=== PATIENT | male | born 1980 | race Caucasian/White ===

== ENCOUNTER 2017-07-28 20:46 | Inpatient (IN) | payer OTHER ==
[~2017-07-28] VITALS: Ht 170.2 cm; Wt 58.0 kg
[~2017-07-28 20:46] MED LIST: CEPH250C
[2017-07-28 20:58] VITALS: BP 136/95; PULSE 55; RESP 18; O2SAT 100
[2017-07-28] MEDS ORDERED: MORPHINE SULFATE 4 MG/ML INJ IV PUSH ONE (21:00)
[2017-07-28] MEDS ORDERED: SODIUM CHLORIDE 0.9% FLUSH 10 ML FLUSH IV FLUSH PRN (21:00)
--- NOTE | 2017-07-28 21:05 | PD ---
HPI Chief Complaint: Dog bite Time Seen by Provider: 20:59 Travel History International Travel<30 days: No Contact w/Intl Traveler<30days: No History of Present Illness HPI Patient comes emergency department after being evaluated for [facility] as a trauma transfer. 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 Patient reportedly had warrants out for his arrest took off running and the canine dog was released causing traumatic dog bite to the left calf. Describes pain as a burning pressure-like in nature is worse to any palpation of his distal left lower extremity. Patient reports he is unable to move his extremity distally secondary to the pain. Patient was given IV morphine, IV Zofran, 3 g of Unasyn, IV Dilaudid, Toradol, and his tetanus shot was updated prior to coming to the emergency department. Denies any radiation of the pain. Severity moderate. PFSH Past Medical History Depression: Yes Social History Alcohol Use: No Tobacco Use: Yes (<ONE PK PER DAY) Allergies-Medications (Allergen,Severity, Reaction): Coded Allergies: No Known Allergies (Verified Allergy, Mild, 07/28/17) Reported Meds & Prescriptions Reported Meds & Active Scripts Active Reported Keflex (Cephalexin Monohydrate) 250 Mg Cap Review of Systems Except as stated in HPI: all other systems reviewed are Neg Physical Exam Narrative GENERAL: Well-developed, well nourished, in no acute distress, and non-ill appearing. SKIN: Large soft tissue injury noted to left calf and her dog bite. Wound goes all the way down to the fascia. No obvious bony involvement is noted. Neurovascularly intact distally. HEAD: Atraumatic. Normocephalic. EYES: Pupils equal and round. EOMI. No scleral icterus. No injection or drainage. ENT: No nasal bleeding or discharge. Mucous membranes pink and moist. NECK: Trachea midline. Supple. No nuclear rigidity. CARDIOVASCULAR: Dorsal pulses 2+, intact, and equal bilaterally. RESPIRATORY: No accessory muscle use. No respiratory distress. MUSCULOSKELETAL: No obvious deformities. No clubbing. No cyanosis. No edema. Full range of motion. NEUROLOGICAL: Awake and alert. No obvious cranial nerve deficits. Motor grossly within normal limits. Normal speech. PSYCHIATRIC: Appropriate mood and affect; insight and judgment normal. Data Data Last Documented VS Vital Signs Date Time Temp Pulse Resp B/P (MAP) Pulse Ox O2 Delivery O2 Flow Rate FiO2 07/28/17 20:58 55 18 136/95 (109) 100 Orders Orders Tibia/Fibula (Ap/Lat) (07/28/17 ) Iv Access Insert/Monitor (07/28/17 20:57) Ecg Monitoring (07/28/17 20:57) Oximetry (07/28/17 20:57) Morphine Inj (Morphine Inj) (07/28/17 21:00) Sodium Chloride 0.9% Flush (Ns Flush) (07/28/17 21:00) Admit To Inpatient (07/28/17 ) Vital Signs (Adult) SCARLETT.QSHIFT (07/28/17 21:11) Intake + Output SCARLETT.Q8H (07/28/17 21:11) Activity Bed Rest (07/28/17 21:11) Diet Npo (07/29/17 Breakfast) Scd / Grady / Foot Pump SCARLETT.QSHIFT (07/28/17 21:11) Resp Incentive Spirometry (07/28/17 ) Lactated Ringer's 1000 Ml Inj (Lr 1000 M (07/28/17 21:11) Morphine Inj (Morphine Inj) (07/28/17 21:15) Ondansetron Inj (Zofran Inj) (07/28/17 21:15) Enoxaparin Inj (Lovenox Inj) (07/28/17 23:00) Consult Pt Eval & Treat (07/28/17 21:11) Docusate Sodium (Colace) (07/29/17 09:00) Magnesium Hydroxide Liq (Milk Of Magnesi (07/28/17 21:15) Consult Orthopedic (07/28/17 ) ^ Initiate Protocol (07/28/17 21:11) Instruction (07/28/17 21:11) Misc Nursing Information (07/28/17 21:15) Chlorhexidine 2% Cloth (Chlorhexidine 2% (07/29/17 04:00) Chlorhexidine 2% Cloth (Chlorhexidine 2% (07/28/17 21:15) Mrsa Pcr Surveillance (07/28/17 21:11) Inpatient Certification (07/28/17 ) Levothyroxine (Synthroid) (07/29/17 06:00) Vancomycin Inj (Vancomycin Inj) (07/28/17 22:00) Piperacil-Tazo 3.375 Gm Premix (Zosyn 3. (07/29/17 00:00) Admit Order (Ed Use Only) (07/28/17 21:43) MDM Medical Decision Making Medical Screen Exam Complete: Yes Emergency Medical Condition: Yes Interpretation(s) Last Impressions Tibia/Fibula X-Ray 07/28/17 0000 Signed Impressions: Service Date/Time: Friday, July 28, 2017 21:13 - CONCLUSION: 1. Numerous lacerations around the proximal leg with avulsion fracture at the proximal fibula. John Paul MD Differential Diagnosis Dog bite, open fracture, traumatic wound Narrative Course Patient was seen and examined. Patient was given an additional dose of IV morphine, patient was placed on court monitor, x-ray of the tib-fib was ordered. Discussed patient with trauma surgeon who agrees to admit the patient requesting orthopedic consult. Discussed patient with orthopedic is agreeable to consult the patient. Discussed all findings and plan of care patient is agreeable for admission. All questions were answered. Discussed patient with Dr. Aaron, who is in agreement with plan of care and disposition. Patient remained stable throughout ED course. Physician Communication Physician Communication [address] Squires at bedside and evaluated the patient recommends giving additional 4 mg of morphine, repeating tib-fib x-ray, and consulting orthopedic for surgical intervention. He will admit the patient. [address] Chuck Alvarez, who is uncertain if they will be able to consult on the patient but is wanting to wait x-rays. 2139 discussed patient with Antonio DE SANTIAGO does not appear to be any bony involvement. Antonio is agreeable to accept consult at this time. [address] Chuck DE SANTIAGO regarding the renal cervical region on the avulsion fracture of the proximal fibula. States no change in plan of care at this time. Diagnosis Primary Impression: Dog bite of calf Qualified Codes: S81.852A - Open bite, left lower leg, initial encounter; W54.0XXA - Bitten by dog, initial encounter Additional Impression: Open fracture of fibula alone Admitting Information Admitting Physician Requests: Admit Condition: Stable Misha Zhang Jul 28, 2017 21:05
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
[2017-07-28] MEDS ORDERED: CHLORHEXIDINE GLUCONATE 2 % 1 PACK (2 CLOTHS) TOP PRN (21:15)
[2017-07-28] MEDS ORDERED: MAGNESIUM HYDROXIDE SUSP 30 ML CUP PO PRN (21:15)
[2017-07-28] MEDS ORDERED: MORPHINE SULFATE 4 MG/ML INJ IV PUSH PRN (21:15)
[2017-07-28] MEDS ORDERED: MISCELLANEOUS NURSING INFORMATION XX SCH (21:15)
[2017-07-28] MEDS ORDERED: ONDANSETRON HCL 4 MG/2 ML VIAL IV PUSH PRN (21:15)
--- NOTE | 2017-07-28 21:59 | RADRPT ---
EXAM DATE/TIME: 07/28/2017 21:13 [facility] COMPARISON: No previous studies available for comparison. INDICATIONS : Evaluate left tibia for trauma, dog bite MEDICAL HISTORY : None. SURGICAL HISTORY : None. ENCOUNTER: Initial ACUITY: 1 day PAIN SCORE: 9/10 LOCATION: Left Tibia FINDINGS: Two view examination of the left tibia demonstrates numerous lacerations around the left knee and upp er left leg with small avulsion fracture of the proximal fibula. No radiopaque foreign body. CONCLUSION: 1. Numerous lacerations around the proximal leg with avulsion fracture at the proximal fibula. John Paul MD on July 28, 2017 at 21:56 Board Certified Radiologist. This report was verified electronically.
[2017-07-28] MEDS: LACTATED RINGER'S 1000 ML INJ 1,000 ML IV SCH (22:47)
[2017-07-28] MEDS: ENOXAPARIN SODIUM 30 MG/0.3 ML SYRINGE SQ SCH (22:48)
[2017-07-28] MEDS: VANCOMYCIN INJ 1,000 MG in SODIUM CHLOR 0.9% 250 ML INJ 250 ML IV SCH (22:48)
[2017-07-29] MEDS: PIPERACIL-TAZO 3.375 GM PREMIX 50 ML IV SCH ×5 (00:59→23:07)
[2017-07-29 03:00] VITALS: BP 118/64; PULSE 84; RESP 16; O2SAT 87
[2017-07-29] MEDS: CHLORHEXIDINE GLUCONATE 2 % 1 PACK (2 CLOTHS) TOP SCH (04:00)
[2017-07-29] MEDS: LEVOTHYROXINE SODIUM 200 MCG TAB PO SCH (06:00)
[2017-07-29 07:01] LABS: AUTOMATED NEUTROPHIL # 6.6 TH/MM3 (1.8-7.7); BASOPHIL # 0.1 TH/MM3 (0-0.2); BASOPHIL % 1.2 % (0.0-2.0); EOSINOPHIL # 0.2 TH/MM3 (0-0.4); EOSINOPHIL % 1.5 % (0.0-4.0); HEMATOCRIT 35.3 % (39.0-51.0); HEMOGLOBIN 12.1 GM/DL (13.0-17.0); LYMPH % 22.3 % (9.0-44.0); LYMPHOCYTE # 2.3 TH/MM3 (1.0-4.8); MEAN CELL VOLUME 93.4 FL (80.0-100.0); MEAN CORPUSCULAR HEMOGLOBIN 32.1 PG (27.0-34.0); MEAN CORPUSCULAR HGB CONC 34.4 % (32.0-36.0); MEAN PLATELET VOLUME 7.5 FL (7.0-11.0); MONO % 9.4 % (0.0-8.0); MONOCYTE # 0.9 TH/MM3 (0-0.9); NEUT % 65.6 % (16.0-70.0); PLATELET COUNT 252 TH/MM3 (150-450); RED BLOOD COUNT 3.77 MIL/MM3 (4.50-5.90); RED CELL DISTRIBUTION WIDTH 13.5 % (11.6-17.2); WHITE BLOOD COUNT 10.1 TH/MM3 (4.0-11.0)
[2017-07-29 07:21] LABS: BICARBONATE 20.8 MEQ/L (21.0-32.0); CALCIUM 8.3 MG/DL (8.5-10.1); CREATININE 1.38 MG/DL (0.60-1.30)
[2017-07-29 07:31] VITALS: BP 107/62; PULSE 45; RESP 16; TEMP 97.6; O2SAT 100
[2017-07-29] MEDS: VANCOMYCIN INJ 1,000 MG in SODIUM CHLOR 0.9% 250 ML INJ 250 ML IV SCH ×3 (07:45→22:01)
[2017-07-29] MEDS ORDERED: GENTAMICIN SULFATE 80 MG/2 ML VIAL ONE (08:35)
[2017-07-29] MEDS ORDERED: ceFAZolin INJ 1,000 MG VIAL ONE (08:35)
[2017-07-29] MEDS: DOCUSATE SODIUM 100 MG CAP PO SCH ×2 (09:00→22:01)
[2017-07-29] MEDS ORDERED: CHLORHEXIDINE GLUCONATE 2 % 1 PACK (2 CLOTHS) TOPICAL PRN (09:15)
[2017-07-29] MEDS ORDERED: POVIDONE IODINE 5% (ANTISEPSIS KIT) 4 APPLICATIONS EACH NARE PRN (09:15)
[2017-07-29] MEDS ORDERED: LACTATED RINGER'S 1000 ML IV PRN (09:15)
[2017-07-29] MEDS ORDERED: SODIUM CHLORID 0.9% 500 ML IV PRN (09:15)
[2017-07-29] MEDS ORDERED: METOPROLOL TARTRATE 25 MG TAB PO PRN (09:15)
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
[2017-07-29] MEDS: LACTATED RINGER'S 1000 ML INJ 1,000 ML IV SCH ×5 (10:17→22:02)
[2017-07-29] MEDS ORDERED: BACITRACIN TOP OINT 15 GM TUBE ONE (10:22)
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
[2017-07-29] MEDS: ENOXAPARIN SODIUM 30 MG/0.3 ML SYRINGE SQ SCH ×2 (11:00→22:02)
[2017-07-29] MEDS ORDERED: DO NOT ADM ANY ANTICOAGULANT DRUGS PRN (11:04)
[2017-07-29] MEDS ORDERED: *morphine SULFATE 4 MG/ML PERIprocedure ONLY ONE (11:43)
[2017-07-29] MEDS ORDERED: ONDANSETRON HCL 4 MG/2 ML VIAL IV ONE (12:00)
[2017-07-29] MEDS ORDERED: DEXAMETHASONE SOD PHOS 4 MG/ML VIAL IV ONE (12:00)
[2017-07-29] MEDS ORDERED: LIDOCAINE HCL 1% PF 5 ML SYRINGE OTHER ONE (12:00)
[2017-07-29] MEDS ORDERED: GLYCOPYRROLATE 1 MG/5 ML SYRINGE IV PUSH ONE (12:00)
[2017-07-29] MEDS ORDERED: LACTATED RINGER'S 1000 ML INJ 1,000 ML IV ONE (12:00)
[2017-07-29] MEDS ORDERED: PROPOFOL 200 MG/20 ML AMP IV ONE (12:00)
[2017-07-29] MEDS ORDERED: ePHEDrine/NS 25 MG/5 ML SYRINGE IV ONE (12:00)
[2017-07-29] MEDS ORDERED: PHENYLEPH/NS 1000 MCG/10 ML SYR IV ONE (12:00)
--- NOTE | 2017-07-29 12:10 | RADRPT ---
EXAM DATE/TIME: 07/29/2017 11:39 [facility] COMPARISON: No previous studies available for comparison. INDICATIONS : Post central line placement MEDICAL HISTORY : None. SURGICAL HISTORY : None. ENCOUNTER: Initial ACUITY: 1 day PAIN SCORE: Non-responsive. LOCATION: Bilateral chest FINDINGS: A single view of the chest demonstrates the lungs to be symmetrically aerated without evidence of mas s, infiltrate or effusion. No evidence of pneumothorax. The cardiomediastinal contours are unremarka ble. Osseous structures are intact. Left subclavian catheter tip projects over the origin of the sup erior vena cava. CONCLUSION: 1. Central line at the origin of the superior vena cava. 2. No evidence of pneumothorax. Juan J Rose MD on July 29, 2017 at 12:08 Board Certified Radiologist. This report was verified electronically.
[2017-07-29 13:34] VITALS: BP 118/77; PULSE 49; RESP 19; TEMP 97.4; O2SAT 98
[2017-07-29 15:47] VITALS: BP 115/72; PULSE 50; RESP 19; TEMP 97.2; O2SAT 100
[2017-07-29] MEDS: ACETAMINOPHEN/HYDROcodone 325 MG/7.5 MG TAB PO PRN (17:09)
--- NOTE | 2017-07-29 17:40 | HHI.PR ---
Subjective Subjective Notes PTD: 1 Patient lying in bed. No distress noted. [place] at bedside. Remains groggy post OR. Patient complains of pain to left lower extremity. Objective Vitals/I&O Vital Signs Date Time Temp Pulse Resp B/P (MAP) Pulse Ox O2 Delivery O2 Flow Rate FiO2 07/29/17 15:47 97.2 50 19 115/72 (86) 100 07/29/17 12:30 Nasal Cannula 2 Labs Laboratory Tests Test 07/29/17 05:55 White Blood Count 10.1 Red Blood Count 3.77 Hemoglobin 12.1 Hematocrit 35.3 Mean Corpuscular Volume 93.4 Mean Corpuscular Hemoglobin 32.1 Mean Corpuscular Hemoglobin Concent 34.4 Red Cell Distribution Width 13.5 Platelet Count 252 Mean Platelet Volume 7.5 Neutrophils (%) (Auto) 65.6 Lymphocytes (%) (Auto) 22.3 Monocytes (%) (Auto) 9.4 Eosinophils (%) (Auto) 1.5 Basophils (%) (Auto) 1.2 Neutrophils # (Auto) 6.6 Lymphocytes # (Auto) 2.3 Monocytes # (Auto) 0.9 Eosinophils # (Auto) 0.2 Basophils # (Auto) 0.1 CBC Comment DIFF FINAL Differential Comment Blood Urea Nitrogen 22 Creatinine 1.38 Random Glucose 78 Calcium Level 8.3 Sodium Level 136 Potassium Level 4.2 Chloride Level 108 Carbon Dioxide Level 20.8 Anion Gap 7 Estimat Glomerular Filtration Rate 58 Radiology Last 72 hours Impressions Chest X-Ray 07/29/17 0000 Signed Impressions: Service Date/Time: Saturday, July 29, 2017 11:39 - CONCLUSION: 1. Central line at the origin of the superior vena cava. 2. No evidence of pneumothorax. Juan J Rose MD Tibia/Fibula X-Ray 07/28/17 0000 Signed Impressions: Service Date/Time: Friday, July 28, 2017 21:13 - CONCLUSION: 1. Numerous lacerations around the proximal leg with avulsion fracture at the proximal fibula. John Paul MD Narrative Exam GENERAL: This is a 36-year-old male who looks much older than his stated age lying in bed. No distress noted. SKIN: Warm and dry. HEAD: Atraumatic. Normocephalic. EYES: PERRLA ENT: No nasal bleeding or discharge. Mucous membranes pink and moist. NECK: Trachea midline. No JVD. CARDIOVASCULAR: Regular rate and rhythm. RESPIRATORY: No accessory muscle use. Lungs are clear to auscultation. Breath sounds equal bilaterally. No distress or dyspnea. GASTROINTESTINAL: BS + x 4 quads. Abdomen soft, non-tender, nondistended. MUSCULOSKELETAL: Extremities without cyanosis, or edema. LEFT lower extremity wrapped in Jesus bandage. + peripheral pulses x 4 extremities. Warm with good capillary refill and sensation. MAEW. NEUROLOGICAL: Awake and alert. Normal speech and pattern. A/P Problem List: (1) Dog bite of calf ICD Codes: S81.859A - Open bite, unspecified lower leg, initial encounter; W54.0XXA - Bitten by dog, initial encounter Status: Acute (2) Open fracture of fibula alone ICD Codes: S82.409B - Unspecified fracture of shaft of unspecified fibula, initial encounter for open fracture type I or II Status: Acute Assessment and Plan [place]: This is a 36-year-old male who sustained a dog bite. He had a warrant out for his arrest and the canines were released. Traumatic dog bite to left calf. INJURIES: LEFT fibula avulsion fx Leg lacerations PMHx: Smoker Procedures: 07/29: I&D LEFT calf. Complex wound closure Consults: Orthopedics. Case management. Diet: Regular diet. Tolerating po diet. Encourage good po intake with each meal. Pulmonary: Encourage good pulmonary toileting. IS at bedside and pt encouraged to use. Rationale for use explained to patient, and verbalized understanding. PAIN Management: [place] 7.5 mg q 3h. Morphine 4 mg q 3h. Activity: OOB. PT ordered. (?WBS?) GI prophylaxis: Not indicated at this time Bowel regimen: Colace and MOM. LBM: 0 DVT prophylaxis: Mechanical VTE with SCDs. Chemical management with Lovenox 30 mg BID SQ. DC Planning: Case management consulted for assistance with final discharge disposition. Patient will be discharged back into police custody. Emotional support provided to patient at bedside and plan of care discussed. Discussed with RN at bedside. Discussed pt condition and plan of care with collaborating trauma surgeon. Patient is hemodynamically stable and being managed on the med/surg floor. The trauma team will round each day, and evaluate plan of care on a daily basis. Attending Statement The exam, history, and the medical decision-making described in the above note were completed with the assistance of the mid-level provider. I reviewed and agree with the findings presented. I attest that I had a [id number] encounter with the patient on the same day, and personally performed and documented my assessment and findings in the medical record. Problem Qualifiers (1) Dog bite of calf: Qualified Codes: S81.852A - Open bite, left lower leg, initial encounter; W54.0XXA - Bitten by dog, initial encounter Janae Sullivan Jul 29, 2017 17:40 Keven Squires MD Jul 30, 2017 02:14
[2017-07-29 20:03] VITALS: O2SAT 99
[2017-07-30] VITALS: BP 148/68; PULSE 62; RESP 16; TEMP 97.3; O2SAT 99
[2017-07-30] MEDS: CHLORHEXIDINE GLUCONATE 2 % 1 PACK (2 CLOTHS) TOP SCH (03:01)
[2017-07-30] MEDS: PIPERACIL-TAZO 3.375 GM PREMIX 50 ML IV SCH ×4 (05:05→18:32)
[2017-07-30] MEDS: LACTATED RINGER'S 1000 ML INJ 1,000 ML IV SCH ×2 (05:05→05:39)
[2017-07-30] MEDS: LEVOTHYROXINE SODIUM 200 MCG TAB PO SCH (05:38)
[2017-07-30] MEDS: VANCOMYCIN INJ 1,000 MG in SODIUM CHLOR 0.9% 250 ML INJ 250 ML IV SCH ×2 (05:39→17:25)
[2017-07-30] MEDS ORDERED: DOCU1CAP39 PO (07:05)
[2017-07-30] MEDS ORDERED: MAGN30S PO (07:05)
--- NOTE | 2017-07-30 07:22 | PD.ORT.PN ---
Subjective Subjective Remarks POD 1 s/p I&D with wound closure left leg doing well. reports pain Objective Vitals Vital Signs Date Time Temp Pulse Resp B/P (MAP) Pulse Ox O2 Delivery O2 Flow Rate FiO2 07/30/17 00:00 97.3 62 16 148/68 (94) 99 07/29/17 20:03 99 21 07/29/17 15:47 97.2 50 19 115/72 (86) 100 07/29/17 13:34 97.4 49 19 118/77 (91) 98 07/29/17 12:30 98.0 07/29/17 12:30 45 14 139/92 (108) 96 Nasal Cannula 2 07/29/17 12:15 43 14 141/94 (110) 96 Nasal Cannula 2 07/29/17 12:00 42 14 140/96 (111) 95 Nasal Cannula 2 07/29/17 11:45 44 14 133/90 (104) 94 Nasal Cannula 2 07/29/17 11:30 44 14 140/97 (111) 95 Nasal Cannula 2 07/29/17 11:15 96.3 07/29/17 11:11 96.3 46 14 133/88 (103) 98 Nasal Cannula 2 07/29/17 07:31 97.6 45 16 107/62 (77) 100 I/O 07/29/17 07/29/17 07/29/17 07/30/17 07/30/17 07/30/17 07:00 15:00 23:00 07:00 15:00 23:00 Intake Total 1000 ml 120 ml 350 ml Output Total 20 ml 800 ml Balance 980 ml -680 ml 350 ml Intake Oral 120 ml IV Total 350 ml Other 1000 ml Output Urine Total 800 ml Estimated Blood Loss 20 ml Result Diagram: 07/29/17 0555 07/29/17 0555 Objective Remarks LLE: dressings clean and dry. intact. NVI Assessment & Plan Assessment and Plan 1) Left Traumatic Bite Injury s/p I&D and wound closure 2) Left Nondisplaced proximal fibula fx -plan for dressing changes with bacitracin/xeroform/4x4/REED on POD -NWB -will require a few days in hospital for IV Abx -f/u with Kyree or PA in 2 weeks Antonio Mar/Multineedle Shirrer PA Jul 30, 2017 07:22
[2017-07-30 07:42] VITALS: BP 118/76; PULSE 48; RESP 18; TEMP 98.2; O2SAT 95
[2017-07-30] MEDS: DOCUSATE SODIUM 100 MG CAP PO SCH ×2 (08:09→22:13)
[2017-07-30] MEDS ORDERED: PNEUMOCOCCAL POLYVALENT INJ 25 MCG/0.5 ML SYR IM ONE (10:00)
[2017-07-30] MEDS ORDERED: INFLUENZA VIRUS VACCINE (QUADRIVALENT) 0.5 ML SYR IM ONE (10:00)
[2017-07-30 11:28] VITALS: BP 118/78; PULSE 47; RESP 18; TEMP 98.1; O2SAT 97
[2017-07-30] MEDS: ENOXAPARIN SODIUM 30 MG/0.3 ML SYRINGE SQ SCH ×2 (11:30→22:13)
[2017-07-30] MEDS ORDERED: Amoxicil-Clavulanate PO (11:34)
[2017-07-30] MEDS ORDERED: HYDR-3580 PO (11:35)
--- NOTE | 2017-07-30 12:59 | HHI.PR ---
Subjective Subjective Notes PTD: 2 Pt lying in bed asleep. Arouses easily. [place] at bedside. Pt c/o pain to his LEFT leg. Objective Vitals/I&O Vital Signs Date Time Temp Pulse Resp B/P (MAP) Pulse Ox O2 Delivery O2 Flow Rate FiO2 07/30/17 11:28 98.1 47 18 118/78 (91) 97 07/29/17 20:03 21 07/29/17 12:30 Nasal Cannula 2 Radiology Chest X-Ray 07/29/17 0000 Signed Impressions: Service Date/Time: Saturday, July 29, 2017 11:39 - CONCLUSION: 1. Central line at the origin of the superior vena cava. 2. No evidence of pneumothorax. Juan J Rose MD Tibia/Fibula X-Ray 07/28/17 0000 Signed Impressions: Service Date/Time: Friday, July 28, 2017 21:13 - CONCLUSION: 1. Numerous lacerations around the proximal leg with avulsion fracture at the proximal fibula. John Paul MD Narrative Exam GENERAL: This is a 36-year-old male who looks much older than his stated age lying in bed asleep - arouses easily. No distress noted. SKIN: Warm and dry. HEAD: Atraumatic. Normocephalic. EYES: PERRLA ENT: No nasal bleeding or discharge. Mucous membranes pink and moist. NECK: Trachea midline. No JVD. CARDIOVASCULAR: Regular rate and rhythm. RESPIRATORY: No accessory muscle use. Lungs are clear to auscultation. Breath sounds equal bilaterally. No distress or dyspnea. GASTROINTESTINAL: BS + x 4 quads. Abdomen soft, non-tender, nondistended. MUSCULOSKELETAL: Extremities without cyanosis, or edema. LEFT lower extremity wrapped in Jesus bandage. + peripheral pulses x 4 extremities. Warm with good capillary refill and sensation. MAEW. NEUROLOGICAL: Asleep - awakens easily. A/P Problem List: (1) Dog bite of calf ICD Codes: S81.859A - Open bite, unspecified lower leg, initial encounter; W54.0XXA - Bitten by dog, initial encounter Status: Acute (2) Open fracture of fibula alone ICD Codes: S82.409B - Unspecified fracture of shaft of unspecified fibula, initial encounter for open fracture type I or II Status: Acute Assessment and Plan [place]: This is a 36-year-old male who sustained a dog bite. He had a warrant out for his arrest and the canines were released. Traumatic dog bite to left calf. INJURIES: LEFT fibula avulsion fx Leg lacerations PMHx: Smoker Procedures: 07/29: I&D LEFT calf. Complex wound closure Consults: Orthopedics. Case management. Diet: Regular diet. Tolerating po diet. Encourage good po intake with each meal. Pulmonary: Encourage good pulmonary toileting. IS at bedside and pt encouraged to use. Rationale for use explained to patient, and verbalized understanding. PAIN Management: [place] 7.5 mg q 3h. Morphine 4 mg q 3h. Activity: OOB. PT ordered. (?WBS?) GI prophylaxis: Not indicated at this time Bowel regimen: Colace and MOM PRN. LBM: 0 DVT prophylaxis: Mechanical VTE with SCDs. Chemical management with Lovenox 30 mg BID SQ. DC Planning: Case management consulted for assistance with final discharge disposition. Patient will be discharged back into police custody. Emotional support provided to patient at bedside and plan of care discussed. Discussed with RN at bedside. Discussed pt condition and plan of care with collaborating trauma surgeon. Patient is hemodynamically stable and being managed on the med/surg floor. The trauma team will round each day, and evaluate plan of care on a daily basis. LEFT fibula avulsion fx Leg lacerations Orthopedics consulted. 07/29: I&D LEFT calf. Complex wound closure. Supportive care Pain management IV abx - Vanco and Zosyn PT ordered Encourage OOB WBS per ortho Dressing changes per orthopedics Plan for DC tomorrow after bedside dressing change Attending Statement The exam, history, and the medical decision-making described in the above note were completed with the assistance of the mid-level provider. I reviewed and agree with the findings presented. I attest that I had a [id number] encounter with the patient on the same day, and personally performed and documented my assessment and findings in the medical record. Problem Qualifiers (1) Dog bite of calf: Qualified Codes: S81.852A - Open bite, left lower leg, initial encounter; W54.0XXA - Bitten by dog, initial encounter Janae Sullivan Jul 30, 2017 12:59 Keven Squires MD Jul 30, 2017 19:10
[2017-07-30] MEDS ORDERED: AMOXICILLIN/CLAVULANATE K 250 MG TAB PO SCH (14:00)
[2017-07-30] MEDS ORDERED: AMOXICILLIN/CLAVUL SUSP 250 MG/5 ML 100 ML BTL PO SCH (14:00)
[2017-07-30 16:09] VITALS: BP 127/84; PULSE 49; RESP 18; TEMP 98.7; O2SAT 98
[2017-07-30 21:00] VITALS: BP 115/69; PULSE 47; RESP 18; TEMP 97.4; O2SAT 97
[2017-07-31 00:30] VITALS: BP 111/68; PULSE 52; RESP 18; TEMP 98.3; O2SAT 97
[2017-07-31] MEDS: PIPERACIL-TAZO 3.375 GM PREMIX 50 ML IV SCH ×3 (01:24→12:03)
[2017-07-31] MEDS: LEVOTHYROXINE SODIUM 200 MCG TAB PO SCH (05:08)
[2017-07-31] MEDS: VANCOMYCIN INJ 1,000 MG in SODIUM CHLOR 0.9% 250 ML INJ 250 ML IV SCH (05:10)
[2017-07-31 05:25] LABS: AUTOMATED NEUTROPHIL # 5.4 TH/MM3 (1.8-7.7); BASOPHIL # 0.1 TH/MM3 (0-0.2); BASOPHIL % 1.3 % (0.0-2.0); EOSINOPHIL # 0.1 TH/MM3 (0-0.4); EOSINOPHIL % 1.3 % (0.0-4.0); HEMATOCRIT 31.1 % (39.0-51.0); HEMOGLOBIN 10.7 GM/DL (13.0-17.0); LYMPH % 28.9 % (9.0-44.0); LYMPHOCYTE # 2.5 TH/MM3 (1.0-4.8); MEAN CELL VOLUME 93.1 FL (80.0-100.0); MEAN CORPUSCULAR HGB CONC 34.4 % (32.0-36.0); MEAN PLATELET VOLUME 7.6 FL (7.0-11.0); MONO % 7.2 % (0.0-8.0); MONOCYTE # 0.6 TH/MM3 (0-0.9); NEUT % 61.3 % (16.0-70.0); PLATELET COUNT 266 TH/MM3 (150-450); RED BLOOD COUNT 3.34 MIL/MM3 (4.50-5.90); RED CELL DISTRIBUTION WIDTH 14.1 % (11.6-17.2); WHITE BLOOD COUNT 8.7 TH/MM3 (4.0-11.0)
[2017-07-31 05:30] VITALS: BP 123/71; PULSE 49; RESP 18; TEMP 98.5; O2SAT 95
[2017-07-31 05:50] LABS: AST (GOT) 77 U/L (15-37); BICARBONATE 28.6 MEQ/L (21.0-32.0); BLOOD UREA NITROGEN 16 MG/DL (7-18); CALCIUM 8.5 MG/DL (8.5-10.1); CHLORIDE 105 MEQ/L (98-107); CREATININE 1.42 MG/DL (0.60-1.30); GLOMERULAR FILTRATION RATE 56 ML/MIN (>89); GLUCOSE,RANDOM 99 MG/DL (74-106); SODIUM (NA) 142 MEQ/L (136-145)
[2017-07-31 05:51] LABS: ALT (GPT) 34 U/L (12-78)
[2017-07-31 05:53] LABS: ALKALINE PHOSPHATASE 50 U/L (45-117); TOTAL BILIRUBIN ADULT 0.2 MG/DL (0.2-1.0); TOTAL PROTEIN 6.7 GM/DL (6.4-8.2)
[2017-07-31] MEDS ORDERED: WALKER WHEELS/F1 MIS (07:09)
--- NOTE | 2017-07-31 07:09 | PD.ORT.PN ---
Subjective Subjective Remarks POD 2 s/p I&D with wound closure left leg doing well. reports pain Objective Vitals Vital Signs Date Time Temp Pulse Resp B/P (MAP) Pulse Ox O2 Delivery O2 Flow Rate FiO2 07/31/17 05:30 98.5 49 18 123/71 (88) 95 07/31/17 00:30 98.3 52 18 111/68 (82) 97 07/30/17 21:00 97.4 47 18 115/69 (84) 97 07/30/17 16:09 98.7 49 18 127/84 (98) 98 07/30/17 11:28 98.1 47 18 118/78 (91) 97 07/30/17 07:42 98.2 48 18 118/76 (90) 95 I/O 07/30/17 07/30/17 07/30/17 07/31/17 07/31/17 07/31/17 07:00 15:00 23:00 07:00 15:00 23:00 Intake Total 350 ml 1153 ml Output Total 200 ml Balance 350 ml 953 ml IV Total 350 ml 1153 ml Output Urine Total 200 ml # Voids 2 Result Diagram: 07/31/17 0500 07/31/17 0500 Objective Remarks LLE: dressings clean and dry. intact. NVI. bandages removed and incisions visualized. healing well. no significant drainage. Assessment & Plan Assessment and Plan 1) Left Traumatic Bite Injury s/p I&D and wound closure - POD 2 2) Left Nondisplaced proximal fibula fx -dressing change done at bedside today with xeroform/4x4/ABD/REED -NWB -IV vanco completed. has one more dose of IV Zosyn schedule to be administed around 11a. plan for discharge to halfway after that dose is complete -ortho clear for DC once Zosyn complete this afternoon. -transition to PO Abx -f/u with Kyree or PA in 2 weeks Antonio Mar/First Jose Raul DE SANTIAGO Jul 31, 2017 07:09
[2017-07-31 08:36] VITALS: BP 149/77; PULSE 52; RESP 20; TEMP 97.6; O2SAT 97
--- NOTE | 2017-07-31 08:54 | HHI.DS ---
Discharge Summary Admission Date Jul 28, 2017 at 21:47 Discharge Date: Jul 31, 2017 Admitting Diagnosis (1) Dog bite of calf ICD Codes: S81.859A - Open bite, unspecified lower leg, initial encounter; W54.0XXA - Bitten by dog, initial encounter Diagnosis: Principal Status: Acute (2) Open fracture of fibula alone ICD Codes: S82.409B - Unspecified fracture of shaft of unspecified fibula, initial encounter for open fracture type I or II Diagnosis: Principal Status: Acute Brief History Dog bite CBC/BMP: 07/31/17 0500 07/31/17 0500 Significant Findings Laboratory Tests Test 07/29/17 05:55 07/31/17 05:00 Red Blood Count 3.77 MIL/MM3 (4.50-5.90) 3.34 MIL/MM3 (4.50-5.90) Hemoglobin 12.1 GM/DL (13.0-17.0) 10.7 GM/DL (13.0-17.0) Hematocrit 35.3 % (39.0-51.0) 31.1 % (39.0-51.0) Monocytes (%) (Auto) 9.4 % (0.0-8.0) Blood Urea Nitrogen 22 MG/DL (7-18) Creatinine 1.38 MG/DL (0.60-1.30) 1.42 MG/DL (0.60-1.30) Calcium Level 8.3 MG/DL (8.5-10.1) Chloride Level 108 MEQ/L (98-107) Carbon Dioxide Level 20.8 MEQ/L (21.0-32.0) Estimat Glomerular Filtration Rate 58 ML/MIN (>89) 56 ML/MIN (>89) Albumin 3.0 GM/DL (3.4-5.0) Aspartate Amino Transf (AST/SGOT) 77 U/L (15-37) Imaging Last Impressions Chest X-Ray 07/29/17 0000 Signed Impressions: Service Date/Time: Saturday, July 29, 2017 11:39 - CONCLUSION: 1. Central line at the origin of the superior vena cava. 2. No evidence of pneumothorax. Juan J Rose MD Tibia/Fibula X-Ray 07/28/17 0000 Signed Impressions: Service Date/Time: Friday, July 28, 2017 21:13 - CONCLUSION: 1. Numerous lacerations around the proximal leg with avulsion fracture at the proximal fibula. John Paul MD PE at Discharge GENERAL: This is a 36-year-old male who looks much older than his stated age lying in bed. No distress noted. SKIN: Warm and dry. HEAD: Atraumatic. Normocephalic. EYES: PERRLA ENT: No nasal bleeding or discharge. Mucous membranes pink and moist. NECK: Trachea midline. No JVD. CARDIOVASCULAR: Regular rate and rhythm. RESPIRATORY: No accessory muscle use. Lungs are clear to auscultation. Breath sounds equal bilaterally. No distress or dyspnea. GASTROINTESTINAL: BS + x 4 quads. Abdomen soft, non-tender, nondistended. MUSCULOSKELETAL: Extremities without cyanosis, or edema. LEFT lower extremity wrapped in Jesus bandage. + peripheral pulses x 4 extremities. Warm with good capillary refill and sensation. MAEW. NEUROLOGICAL: Awake and alert. Hospital Course [place]: This is a 36-year-old male who sustained a dog bite. He had a warrant out for his arrest and the canines were released. Traumatic dog bite to left calf. INJURIES: LEFT fibula avulsion fx Leg lacerations PMHx: Smoker Procedures: 07/29: I&D LEFT calf. Complex wound closure Consults: Orthopedics. Case management. The patient is now tolerating a po diet. Eating and drinking well. Pain is being managed well with PO pain medications, and patient is being a provided with a script for pain meds upon discharge. (NO driving while taking narcotic pain medication enforced to patient.) We have recommended to patient to continue with stool softeners while taking narcotic pain medications to prevent constipation. Pt has been participating in PT while admitted at [facility] and has been ambulating with their assistance and independently . All follow up appointments have been provided and discussed with the patient. It is recommended that the patient keeps all his follow up appointments for continued recovery. Patient's condition and plan of care discussed with collaborating trauma surgeon. He is agreeable to plan for discharge today. Therefore, the patient is stable to be safely discharged into Police custody from a trauma surgery standpoint. Thank you for allowing us to participate in his care. We wish Gadiel the best in his recovery. LEFT fibula avulsion fx Leg lacerations Orthopedics consulted. 07/29: I&D LEFT calf. Complex wound closure. Supportive care Pain management IV abx - Vanco and Zosyn PT ordered Encourage OOB NWB LLE Dressing changes per orthopedics - dressing done at bedside this am Plan for DC today after IV abx complete Continue with po Augmentin regimen outpatient Pt Condition on Discharge: Stable Discharge Disposition: Dis to Court Law Enforcem Discharge Instructions DIET: Follow Instructions for: As Tolerated, No Restrictions Activities you can perform: Non Weight Bearing Activities to Avoid: Driving for 24 hrs, Concussion Sports, Contact Sports, Lifting/Bending, Prolonged Standing, Strenuous Activity Other Activity Instructions: NWB LLE No driving while taking narcotic pain meds. Attending Statement The exam, history, and the medical decision-making described in the above note were completed with the assistance of the mid-level provider. I reviewed and agree with the findings presented. I attest that I had a [id number] encounter with the patient on the same day, and personally performed and documented my assessment and findings in the medical record. Janae Sullivan Jul 31, 2017 08:54 Keven Squires MD Jul 31, 2017 11:52
[2017-07-31] MEDS: DOCUSATE SODIUM 100 MG CAP PO SCH (10:20)
[2017-07-31] MEDS: ENOXAPARIN SODIUM 30 MG/0.3 ML SYRINGE SQ SCH (10:20)
[2017-07-31] MEDS: ACETAMINOPHEN/HYDROcodone 325 MG/7.5 MG TAB PO PRN (10:25)
[2017-07-31 12:45] VITALS: BP 140/70; PULSE 58; RESP 20; TEMP 98; O2SAT 98
== END 2017-07-31 14:33 | DRG 494 ==
LOC: NEPE 20:46 → NEDA 21:47 → NEDH 07-29 02:12 → N05A 07-29 12:43
PROVIDERS: ADMIT Surgery; ATTEND Surgery
PROC: 0QBK0ZZ Excision of Left Fibula, Open Approach (ICD-10-PCS; principal; 2017-07-28)
PROC: 0KBT0ZZ Excision of Left Lower Leg Muscle, Open Approach (ICD-10-PCS; 2017-07-29)
PROC: 0JQP0ZZ Repair Left Lower Leg Subcutaneous Tissue and Fascia, Open Approach (ICD-10-PCS; 2017-07-29)
DX: S82.832B Other fracture of upper and lower end of left fibula, initial encounter for open fracture type I or II (principal); F32.9 Major depressive disorder, single episode, unspecified; E03.9 Hypothyroidism, unspecified; F17.200 Nicotine dependence, unspecified, uncomplicated; W54.0XXA Bitten by dog, initial encounter; Z23 Encounter for immunization
CPT/HCPCS: 71045; 73590; 80048; 80053; 85025; 90686; 90732; 94150; J0690; J1100; J1580; J1650; J2270; J2370; J2405; J2543; J3010; J3370; J7050; J7120; Q2038